=== PATIENT | female | born 2000 | race Caucasian/White ===

== ENCOUNTER 2024-12-08 21:38 | Emergency (ER) | payer MEDICAID ==
[2024-12-08 21:52] VITALS: RESP 18; TEMP 98.5; O2SAT 99
[2024-12-08] MEDS ORDERED: TORAdol 30 mg Injection ONE (22:25)
[2024-12-08] MEDS: TORAdol 30 mg Injection IM ONE (22:27)
--- NOTE | 2024-12-08 22:30 | ERPHSYRPT ---
- History of Present Illness Time Seen by Provider: 12/08/24 21:39 Patient Subjective Stated Complaint: pt states that she missed the step and rolled her ankle. pt states she heard a pop Triage Nursing Assessment: pt came into the er via wheelchair; pt transfer to cot per self; pt is axo x4; c/o rt ankle injury; pt states 4/10 pain to rt ankle; no bruising, deformity, or swelling present to rt foot/ ankle; strong rt pedal pulse; skin PDW; no respiratory distress present; vitals wnl Physician History: 24-year-old female presented in the ER with complaints of right ankle pain after she accidentally twisted it almost an hour prior to arrival. Patient reports she felt a popping sensation. Having difficulty weightbearing, moderate intensity sharp shooting pain in the foot and ankle especially on the lateral side. No injury anywhere else. No numbness or tingling in the toes. Allergies/Adverse Reactions: Penicillins Allergy (Verified 12/08/24 21:43) Hives Hx Tetanus, Diphtheria Vaccination/Date Given: No Hx Influenza Vaccination/Date Given: No Hx Pneumococcal Vaccination/Date Given: No Travel Risk - International Travel Have you traveled outside of the country in past 3 weeks: No - Emerging Infectious Disease Are you exhibiting symptoms associated with any current EIDs: No - Review of Systems Constitutional: No Symptoms Respiratory: No Symptoms Cardiac: No Symptoms Abdominal/Gastrointestinal: No Symptoms Musculoskeletal: Fall, Injury, Joint Pain, Joint Swelling Skin: No Symptoms Neurological: No Symptoms Endocrine: No Symptoms Hematologic/Lymphatic: No Symptoms - Past Medical History Pertinent Past Medical History: No - Past Surgical History Past Surgical History: Yes Musculoskeletal: Orthopedic Surgery Other Surgical History: back - Female History Hx Now: No - Social History Smoking Status: Light tobacco smoker Exposure to second hand smoke: Yes Drug Use: none - Social Determinants of Health Will the patient participate in the screening: Yes Do you worry about a steady place to live?: No Do you have any problems with any of the following?: No known problems In the past 12 months,have you had to go without utilities?: No Transportation Issues: No Has anyone in your support network made you feel unsafe?: No Have you or anyone in your house had to go w/o enough food: No - Nursing Vital Signs Nursing Vital Signs: Initial Vital Signs Pulse Rate 96 H 12/08/24 21:44 Blood Pressure 125/83 12/08/24 21:44 O2 Sat by Pulse Oximetry 100 12/08/24 21:44 Pain Scale Pain Intensity 4 - Physical Exam General Appearance: no apparent distress Neck Exam: normal inspection, full range of motion Cardiovascular/Respiratory Exam: normal breath sounds, regular rate/rhythm Ankle Exam: right ankle: bone tenderness (Lateral malleolus), pain, soft tissue tenderness, swelling, left ankle: non-tender, normal inspection, normal range of motion, no evidence of injury Foot Exam: right foot: bone tenderness (Base of fifth metatarsal), pain, soft tissue tenderness Neuro/Tendon Exam: normal sensation, normal motor functions, normal tendon functions Mental Status Exam: alert, oriented x 3, cooperative Skin Exam: normal color SpO2 Interpretation: normal SpO2: 99 O2 Delivery: Room Air Ordered Tests: Active Orders 24 hr Category Date Time Status ANKLE (3 VIEWS) Stat Exams 12/08/24 22:07 Taken FOOT (MINIMUM 3 VIEWS) Stat Exams 12/08/24 21:44 Taken Medication Summary Discontinued Medications Generic Name Dose Route Start Last Admin Trade Name Chao PRN Reason Stop Dose Admin Ketorolac Tromethamine 30 mg 12/08/24 22:24 12/08/24 22:27 Ketorolac Tromethamine 30 Mg/Ml Inj IM 12/08/24 22:25 30 mg STAT ONE Administration Ketorolac Tromethamine Confirm 12/08/24 22:25 Ketorolac Tromethamine 30 Mg/Ml Inj Administered 12/08/24 22:26 Dose 30 mg .ROUTE .STK-MED ONE - Progress Progress: pain not gone completely Progress Note: 12/08/24 22:28 Differential diagnosis: Ankle fracture/dislocation/sprain, Mendoza fracture \ 24-year-old is evaluated in the ER for right ankle pain and swelling after she twisted and felt a popping sensation. She is given Toradol for symptomatic relief. X-rays are negative for fracture or dislocation in the ankle/foot interpreted by me, pending official read. I believe patient has ankle sprain, placed in Aircast, recommended weightbearing as tolerated, outpatient podiatry/orthopedic follow-up and taking NSAIDs. Discussed signs symptoms of worsening needing return to ER which she is in understanding Complexity of problems addressed: Moderate acute Complexity of data reviewed/analyzed: Moderate Risk of complication: Low Counseled pt/family regarding: diagnosis, need for follow-up, rad results Medical Desision Making - Diagnostic Testing Diagnostic test were ordered, analyzed, and reviewed by me: Yes Radiological Interpretation: Interpreted by me - Risk of complications The pt has a mod risk of morbidity or mortality based on: Need for prescription drug management - Departure Departure Disposition: Home Clinical Impression: Ankle sprain Condition: Stable Critical Care Time: No Referrals: DOCTOR,NO FAMILY [Primary Care Provider, UNKNOWN] - Follow up/PCP as directed KAYLA PUCKETT DPM [ACTIVE STAFF, PODIATRY] - Follow up/PCP as directed Referral Note: Tomorrow for reevaluation Instructions: Ankle sprain - ED discharge instructions Additional Instructions: Take Tylenol/ibuprofen as needed. Avoid exertional activities. Intermittent ice application. Follow-up with podiatry/orthopedics for reevaluation. Return to ER for any worsening. Prescriptions: Ibuprofen 600 mg PO Q6HPRN PRN 10 Days #20 tablet PRN Reason: Pain
[2024-12-08 22:42] VITALS: BP 122/63; PULSE 70
--- NOTE | 2024-12-09 09:23 | XRAY ---
Indication: Pain following fall. Comparison: None 3 view right ankle demonstrates tiny posterior heel spur. No other bony, articular, or soft tissue abnormalities.
--- NOTE | 2024-12-09 09:23 | XRAY ---
Indication: Pain following fall. Comparison: None 3 nonweightbearing views right foot demonstrates tiny 1st cuneiform bone island and tiny posterior heel spur. No other bony, articular, or soft tissue abnormalities.
== END 2024-12-08 22:52 | disposition home or self-care (01) ==
LOC: ED 21:38
DX: S93.401A Sprain of unspecified ligament of right ankle, initial encounter (principal); X50.0XXA Overexertion from strenuous movement or load, initial encounter; Z72.0 Tobacco use

== ENCOUNTER 2025-03-06 07:09 | Emergency (ER) | payer SELFPAY ==
--- NOTE | 2025-03-06 07:39 | ERPHSYRPT ---
- History of Present Illness Physician History: Left shoulder pain, onset of symptoms yesterday, she had no known trauma, initially her pain started anteriorly along the clavicle and anterior joint line of the shoulder, now her pain involves both the anterior and posterior aspect of the joint line of the shoulder, she has been using anti-inflammatories without relief Occurred: yesterday Method of Injury: unknown Quality: constant Severity of Pain-Max: severe Severity of Pain-Current: severe Extremities Pain Location: shoulder: left Modifying Factors: Improves With: nothing Associated Symptoms: none Allergies/Adverse Reactions: Penicillins Allergy (Verified 03/06/25 07:32) Hives Hx Tetanus, Diphtheria Vaccination/Date Given: No Hx Influenza Vaccination/Date Given: No Hx Pneumococcal Vaccination/Date Given: No Travel Risk - Emerging Infectious Disease Are you exhibiting symptoms associated with any current EIDs: No - Past Medical History Neurological History: No Pertinent History Cardiac History: No Pertinent History Respiratory History: Asthma Endocrine Medical History: No Pertinent History Musculoskeletal History: No Pertinent History Other Medical History: NO PREVIOUS INJURIES TO THE R ANKLE. - Past Surgical History Past Surgical History: Yes Musculoskeletal: Orthopedic Surgery Other Surgical History: back - Female History Hx Now: No - Social History Smoking Status: Light tobacco smoker Exposure to second hand smoke: Yes Drug Use: none - Social Determinants of Health Will the patient participate in the screening: Yes Do you worry about a steady place to live?: No In the past 12 months,have you had to go without utilities?: No Transportation Issues: No Has anyone in your support network made you feel unsafe?: No Have you or anyone in your house had to go w/o enough food: No - Nursing Vital Signs Nursing Vital Signs: Initial Vital Signs Temperature 97 F 03/06/25 07:10 Pulse Rate 96 H 03/06/25 07:10 Respiratory Rate 16 03/06/25 07:10 Blood Pressure 123/86 03/06/25 07:10 O2 Sat by Pulse Oximetry 99 03/06/25 07:10 Pain Scale Pain Intensity 7 - Physical Exam General Appearance: no apparent distress Back Exam: normal inspection Shoulder Exam: limited ROM (due to pain, abduction to 90 degrees, internal rotation 15 degrees), pain, soft tissue tenderness Elbow/Forearm Exam: normal inspection Wrist Exam: normal inspection Hand Exam: normal inspection Neuro/Tendon Exam: normal sensation, normal motor functions Mental Status Exam: alert, oriented x 3, cooperative Skin Exam: normal color, warm, dry SpO2 Interpretation: normal SpO2: 99 Procedures - Nerve Block Time of Procedure: 08:10 Location: left shoulder Prepped with: Hibiclens Anesthesia: 1% Lidocaine Volume Anesthetic (ccs): other (15 with 10 mg dexamethasone) Needle & Syringe: 23 g (20 cc) Complications: none Progress: tolerated well Ordered Tests: Active Orders 24 hr Category Date Time Status SHOULDER Stat Exams 03/06/25 07:31 Taken Medication Summary Discontinued Medications Generic Name Dose Route Start Last Admin Trade Name Freq PRN Reason Stop Dose Admin Dexamethasone Sodium Phosphate 10 mg 03/06/25 07:53 03/06/25 08:01 Dexamethasone Sod Phosphate 10 Mg/Ml IM 03/06/25 07:54 10 mg STAT ONE Administration Dexamethasone Sodium Phosphate Confirm 03/06/25 08:00 Dexamethasone Sod Phosphate 10 Mg/Ml Administered 03/06/25 08:01 Dose 10 mg .ROUTE .STK-MED ONE Lidocaine HCl 20 ml 03/06/25 07:52 03/06/25 08:01 Lidocaine Hcl 1% 20 Ml Mdv 20 Ml Ml IJ 03/06/25 07:53 20 ml STAT ONE Administration Lidocaine HCl Confirm 03/06/25 08:00 Lidocaine Hcl 1% 20 Ml Mdv 20 Ml Ml Administered 03/06/25 08:01 Dose 1 ml .ROUTE .STK-MED ONE - Progress Progress Note: 03/06/25 08:24 Intra-articular left shoulder injection with 1% lidocaine with 10 mg of dexamethasone, the skin was prepped with Hibiclens and the areas were injected with 1% lidocaine without epinephrine, Those sites were then utilized to inject into the joint, the left biceps tendon was also injected, the anterior and posterior joint lines were utilized - Departure Departure Disposition: Home Clinical Impression: Bursitis of shoulder, left Condition: Fair Critical Care Time: No Referrals: LOW YANEZ NP [Nurse Practioner, UNKNOWN] - Follow Up with PCP/3 days Instructions: Shoulder pain - ED discharge instructions Additional Instructions: Continue ibuprofen 2-3 tabs 3 times a day, ice left shoulder 10 to 15 minutes 3- 4 times a day Forms: Work/School Release Form Prescriptions: Hydrocodone/APAP 5/325 [[place] 5/325 mg] 1 each PO Q6H PRN PRN #12 tablet MDD 6 PRN Reason: Pain
[2025-03-06 07:40] VITALS: RESP 16; TEMP 97
[2025-03-06] MEDS ORDERED: DECADRON 10MG INJ. ONE (08:00)
[2025-03-06] MEDS ORDERED: XYLOCAINE 1% HCL 20 ML MDV ONE (08:00)
[2025-03-06] MEDS: DECADRON 10MG INJ. IM ONE (08:01)
[2025-03-06] MEDS: XYLOCAINE 1% HCL 20 ML MDV IJ ONE (08:01)
[2025-03-06 08:31] VITALS: O2SAT 99
[2025-03-06 08:48] VITALS: BP 126/75; PULSE 78
--- NOTE | 2025-03-06 08:48 | XRAY ---
Indication: Pain. Comparison: None 3 view left shoulder demonstrates incompletely visualized multilevel bilateral thoracic fusion hardware and small left perihilar calcified granuloma. No other bony, articular, or soft tissue abnormalities.
== END 2025-03-06 08:48 | disposition home or self-care (01) ==
LOC: ED 07:09
DX: M75.52 Bursitis of left shoulder (principal); Z79.891 Long term (current) use of opiate analgesic; Z72.0 Tobacco use